=== PATIENT | female | born 1950 | race Caucasian/White ===

== ENCOUNTER 2021-01-05 13:42 | Outpatient (REF) | payer MEDICARE, BC, SELFPAY ==
[2021-01-05 16:19] LABS: Glucose Urine UA NEG (NEG); Leukocyte Esterase Urine NEG (NEG); Nitrite Urine NEG (NEG); Urine Blood NEG (NEG); Urine Ketones NEG (NEG); Urine Protein NEG (NEG-TRACE)
[2021-01-05 16:20] LABS: Appearance Urine CLEAR; Color Urine YELLOW
== END 2021-01-05 13:43 | disposition home or self-care (01) ==
LOC: HO.HMGCLDS 13:42
PROVIDERS: PCP Internal Medicine; Visit Provider Internal Medicine
DX: R30.0 Dysuria (principal)
CPT/HCPCS: 81003